=== PATIENT | female | born 1955 | race Two or more races ===

== ENCOUNTER 2021-02-05 07:38 | Outpatient (CLI) | payer OTHER ==
[~2021-02-05 07:38] MED LIST: ASPIR 8181 MG PO; CYMBALTA60 MG; NEURONTIN800 MG; TEGRETOL200 MG
== END 2021-02-05 07:43 | disposition home or self-care (01) ==
LOC: NUCLEAR 07:38
PROVIDERS: ATTEND General Practice
DX: I73.9 Peripheral vascular disease, unspecified (principal)

== ENCOUNTER 2021-04-07 10:50 | Emergency (ER) | payer OTHER ==
[~2021-04-07] VITALS: Ht 160 cm; Wt 56.7 kg
[2021-04-07] MEDS ORDERED: HORIZANT300 MG PO (10:59)
[2021-04-07] MEDS ORDERED: CILOSTAZOL50 MG PO (11:00)
[2021-04-07] MEDS ORDERED: ZITHROMAX200 MG PO (13:31)
== END 2021-04-07 14:31 | disposition home or self-care (01) ==
LOC: ER 10:50
DX: J44.1 Chronic obstructive pulmonary disease with (acute) exacerbation (principal); B96.0 Mycoplasma pneumoniae [M. pneumoniae] as the cause of diseases classified elsewhere; Z11.52 Encounter for screening for COVID-19